=== PATIENT | male | born 1970 | race Caucasian/White ===

== ENCOUNTER 2024-04-25 07:15 | Emergency (ER) | payer BC ==
[~2024-04-25] VITALS: Ht 188 cm; Wt 79.4 kg
[2024-04-25 08:07] LABS: BASOPHILS % (AUTO) 0.3 % (0.0-2.0); MEAN CORPUSCULAR HEMOGLOBIN 32.3 uug (23.8-33.4)
[2024-04-25] MEDS ORDERED: ONDANSETRON 4 MG/2 ML VIAL ONE ×3 (08:09→14:57)
[2024-04-25] MEDS ORDERED: HYDROMORPHONE 2 MG/1 ML DISP.SYRIN ONE ×5 (08:10→16:19)
[2024-04-25] MEDS: ONDANSETRON 4 MG/2 ML VIAL IV ONE ×3 (08:14→15:01)
[2024-04-25] MEDS: IV NORMAL SALINE 1000 ML BAG IV ONE (08:14)
[2024-04-25] MEDS: HYDROMORPHONE 1 MG/1 ML DISP.SYRIN IV ONE ×5 (08:15→16:22)
[2024-04-25 08:30] LABS: EOSINOPHILS % (AUTO) 0.5 % (0.0-7.0); HEMATOCRIT 43.9 % (36.7-47.1); HEMOGLOBIN 14.8 g/dL (12.5-16.3); LYMPHOCYTES # (AUTO) 0.8 K/uL (0.8-4.8); LYMPHOCYTES % (AUTO) 8.8 % (20.5-51.5); MEAN CORPUSCULAR HGB CONC 34 g/dL (32.5-36.3); MEAN CORPUSCULAR VOLUME 95.5 fL (73.0-96.2); MONOCYTES # (AUTO) 0.8 K/uL (0.1-1.30); MONOCYTES % (AUTO) 8.7 % (0.0-11.0); NEUTROPHILS # (AUTO) 7.3 K/uL (1.8-8.9); NEUTROPHILS % (AUTO) 81.7 % (38.5-71.5); PLATELET COUNT (AUTO) 185 K/uL (152-348); RED CELL DISTRIBUTION WIDTH 12.8 % (12.1-16.2)
[2024-04-25 08:31] LABS: DIFFERENTIAL COMMENT 1
[2024-04-25 08:38] LABS: CALCIUM 9.2 mg/dL (8.5-10.1); CREATININE 0.9 mg/dL (0.6-1.3); POTASSIUM 3.8 mmol/L (3.5-5.1)
[2024-04-25] MEDS ORDERED: FLEET ENEMA 133 ML BOTTLE RC ONE (08:41)
[2024-04-25 08:43] LABS: BILIRUBIN,DIRECT 0.2 mg/dL (0.0-0.2); BILIRUBIN,TOTAL 0.5 mg/dL (0.2-1.0); TOTAL PROTEIN, SERUM 7.2 g/dL (6.4-8.2)
[2024-04-25] MEDS: FLEET ENEMA 133 ML BOTTLE RC ONE (08:46)
[2024-04-25] MEDS ORDERED: MINERAL OIL FLEET ENEMA 133 ML BOTTLE RC ONE (11:36)
[2024-04-25] MEDS: MINERAL OIL FLEET ENEMA 133 ML BOTTLE RC ONE (11:39)
[2024-04-25] MEDS ORDERED: MAGNESIUM HYDROXIDE 30 ML LIQUID UDC ONE ×2 (16:13→16:19)
[2024-04-25] MEDS: MAGNESIUM HYDROXIDE 30 ML LIQUID UDC PO ONE (16:19)
[2024-04-25 16:29] VITALS: BP 121/81; TEMP 98.5; O2SAT 99
== END 2024-04-25 16:31 | disposition home or self-care (01) ==
LOC: ER 07:15
DX: K50.90 Crohn's disease, unspecified, without complications (principal); K56.41 Fecal impaction; D72.810 Lymphocytopenia; M85.80 Other specified disorders of bone density and structure, unspecified site; Z98.1 Arthrodesis status; Z90.49 Acquired absence of other specified parts of digestive tract
CPT/HCPCS: 99284; 96374; 96361; 96375; 80076; 80048; 82607; 83735; 85025; 36415; 74021; 96376; J2405 ×3; J1171 ×5; J7040 ×2; A4606; A4663

== ENCOUNTER 2024-04-29 06:25 | Emergency (ER) | payer SELFPAY ==
[~2024-04-29] VITALS: Ht 188 cm; Wt 77.1 kg
[2024-04-29 07:30] LABS: BASOPHILS % (AUTO) 0.5 % (0.0-2.0); EOSINOPHILS # (AUTO) 0.1 K/uL (0.0-0.7); EOSINOPHILS % (AUTO) 0.8 % (0.0-7.0); HEMATOCRIT 43.4 % (36.7-47.1); HEMOGLOBIN 14.6 g/dL (12.5-16.3); LYMPHOCYTES # (AUTO) 0.8 K/uL (0.8-4.8); LYMPHOCYTES % (AUTO) 12.1 % (20.5-51.5); MEAN CORPUSCULAR HEMOGLOBIN 32.3 uug (23.8-33.4); MEAN CORPUSCULAR HGB CONC 34 g/dL (32.5-36.3); MEAN CORPUSCULAR VOLUME 96.4 fL (73.0-96.2); MONOCYTES # (AUTO) 0.7 K/uL (0.1-1.30); MONOCYTES % (AUTO) 9.7 % (0.0-11.0); NEUTROPHILS # (AUTO) 5.2 K/uL (1.8-8.9); NEUTROPHILS % (AUTO) 76.9 % (38.5-71.5); PLATELET COUNT (AUTO) 193 K/uL (152-348); RED CELL DISTRIBUTION WIDTH 13.1 % (12.1-16.2); WHITE BLOOD COUNT (AUTO) 6.8 K/uL (3.6-10.2)
[2024-04-29] MEDS ORDERED: ONDANSETRON 4 MG/2 ML VIAL ONE ×2 (07:31→10:15)
[2024-04-29] MEDS ORDERED: HYDROMORPHONE 2 MG/1 ML DISP.SYRIN ONE ×2 (07:32→10:16)
[2024-04-29 07:44] LABS: *BILIRUBIN,URIN NEGATIVE (NEGATIVE); *BLOOD, URINE NEGATIVE (NEGATIVE); *CLARITY,URINE CLEAR (CLEAR); *COLOR,URINE YELLOW (YELLOW); *KETONES,URINE NEGATIVE (NEGATIVE); *PROTEIN,URINE NEGATIVE (NEGATIVE); *UROBILINOGEN,URINE 0.2 E.U./dl (NORMAL); LEUKOCYTE ESTERASE ,URINE NEGATIVE (NEGATIVE); NITRITE, URINE NEGATIVE (NEGATIVE); UGLUCOSE NEGATIVE (NEGATIVE)
[2024-04-29 07:50] LABS: ALANINE AMINOTRANSFERASE 27 U/L (16-63); ALBUMIN 3.7 g/dL (3.4-5.0); ALKALINE PHOSPHATASE 90 U/L (50-136); ASPARTATE AMINOTRANSFERASE 6 U/L (15-37); BILIRUBIN,DIRECT 0.2 mg/dL (0.0-0.2); BILIRUBIN,TOTAL 0.5 mg/dL (0.2-1.0); CALCIUM 9.4 mg/dL (8.5-10.1); CARBON DIOXIDE 30 mmol/L (21-32); CHLORIDE 104 mmol/L (98-107); CREATININE 1.2 mg/dL (0.6-1.3); GLUCOSE 121 mg/dL (74-106); LIPASE 19 U/L (16-77); POTASSIUM 3.8 mmol/L (3.5-5.1); SODIUM SERUM 141 mmol/L (136-145); TOTAL PROTEIN, SERUM 7.3 g/dL (6.4-8.2); UREA NITROGEN, BLOOD 16 mg/dL (7-18)
[2024-04-29 07:52] LABS: DIFFERENTIAL COMMENT 1
[2024-04-29] MEDS: ONDANSETRON 4 MG/2 ML VIAL IV ONE ×2 (07:53→10:17)
[2024-04-29] MEDS: IV NORMAL SALINE 1000 ML BAG IV ONE (07:53)
[2024-04-29] MEDS: HYDROMORPHONE 1 MG/1 ML DISP.SYRIN IV ONE ×2 (07:54→10:26)
[2024-04-29 11:05] VITALS: BP 157/99; O2SAT 99
== END 2024-04-29 11:05 | disposition home or self-care (01) ==
LOC: ER 06:37
DX: K50.90 Crohn's disease, unspecified, without complications (principal)
CPT/HCPCS: 99285; 96374; 71045; 96361; 96375; 80076; 80048; 81003; 83690; 85025; 85730; 84484; 36415; 93005; 96376; J2405 ×2; J1171 ×2; J7040 ×2; A4606; A4663

== ENCOUNTER 2024-05-07 07:23 | Emergency (ER) | payer MEDICAID ==
[~2024-05-07] VITALS: Ht 188 cm; Wt 77.1 kg
[2024-05-07] MEDS ORDERED: ONDANSETRON 4 MG/2 ML VIAL ONE ×2 (07:45→08:38)
[2024-05-07] MEDS ORDERED: HYDROMORPHONE 1 MG/1 ML DISP.SYRIN ONE ×2 (07:46→08:38)
[2024-05-07] MEDS: IV NORMAL SALINE 1000 ML BAG IV ONE (07:48)
[2024-05-07] MEDS: HYDROMORPHONE 1 MG/1 ML DISP.SYRIN IV ONE ×2 (07:48→08:41)
[2024-05-07] MEDS: ONDANSETRON 4 MG/2 ML VIAL IV ONE (07:48)
[2024-05-07 09:03] LABS: BASOPHILS % (AUTO) 0.4 % (0.0-2.0); EOSINOPHILS % (AUTO) 0.2 % (0.0-7.0); HEMATOCRIT 41.8 % (36.7-47.1); HEMOGLOBIN 14.1 g/dL (12.5-16.3); LYMPHOCYTES # (AUTO) 0.9 K/uL (0.8-4.8); LYMPHOCYTES % (AUTO) 11.5 % (20.5-51.5); MEAN CORPUSCULAR HEMOGLOBIN 32.8 uug (23.8-33.4); MEAN CORPUSCULAR HGB CONC 34 g/dL (32.5-36.3); MEAN CORPUSCULAR VOLUME 97.2 fL (73.0-96.2); MONOCYTES # (AUTO) 0.6 K/uL (0.1-1.30); MONOCYTES % (AUTO) 8.1 % (0.0-11.0); NEUTROPHILS # (AUTO) 6.2 K/uL (1.8-8.9); NEUTROPHILS % (AUTO) 79.8 % (38.5-71.5); PLATELET COUNT (AUTO) 156 K/uL (152-348); RED CELL DISTRIBUTION WIDTH 13.2 % (12.1-16.2); WHITE BLOOD COUNT (AUTO) 7.7 K/uL (3.6-10.2)
[2024-05-07 09:19] LABS: CALCIUM 8.7 mg/dL (8.5-10.1); POTASSIUM 3.8 mmol/L (3.5-5.1)
[2024-05-07 09:22] LABS: DIFFERENTIAL COMMENT 1
[2024-05-07 09:26] LABS: ALBUMIN 3.5 g/dL (3.4-5.0); BILIRUBIN,DIRECT 0.1 mg/dL (0.0-0.2); BILIRUBIN,TOTAL 0.5 mg/dL (0.2-1.0); TOTAL PROTEIN, SERUM 6.7 g/dL (6.4-8.2)
[2024-05-07 09:44] VITALS: BP 133/71; TEMP 98; O2SAT 98
== END 2024-05-07 09:45 | disposition home or self-care (01) ==
LOC: ER 07:23
DX: K50.90 Crohn's disease, unspecified, without complications (principal); Z60.2 Problems related to living alone; Z88.8 Allergy status to other drugs, medicaments and biological substances
CPT/HCPCS: 99284; 96374; 96361; 96375; 80076; 80048; 83690; 85025; 36415; 96376; J2405; J1171 ×2; J7040; A4606; A4663

== ENCOUNTER 2024-05-13 07:29 | Emergency (ER) | payer MEDICAID ==
[~2024-05-13] VITALS: Ht 188 cm; Wt 77.1 kg
[2024-05-13] MEDS ORDERED: HYDROMORPHONE 2 MG/1 ML DISP.SYRIN ONE ×4 (08:08→10:37)
[2024-05-13] MEDS ORDERED: ONDANSETRON 4 MG/2 ML VIAL ONE ×2 (08:09→10:03)
[2024-05-13] MEDS: ONDANSETRON 4 MG/2 ML VIAL IV ONE ×2 (08:10→10:05)
[2024-05-13] MEDS: HYDROMORPHONE 1 MG/1 ML DISP.SYRIN IV ONE ×4 (08:10→10:36)
[2024-05-13 08:24] LABS: BASOPHILS # (AUTO) 0.2 K/UL (0.0-0.2); BASOPHILS % (AUTO) 1.7 % (0.0-2.0); EOSINOPHILS % (AUTO) 0.4 % (0.0-7.0); HEMATOCRIT 45.2 % (36.7-47.1); HEMOGLOBIN 15.4 g/dL (12.5-16.3); LYMPHOCYTES # (AUTO) 0.5 K/uL (0.8-4.8); LYMPHOCYTES % (AUTO) 4.4 % (20.5-51.5); MEAN CORPUSCULAR HEMOGLOBIN 33.1 uug (23.8-33.4); MEAN CORPUSCULAR HGB CONC 34 g/dL (32.5-36.3); MEAN CORPUSCULAR VOLUME 96.8 fL (73.0-96.2); MONOCYTES # (AUTO) 0.7 K/uL (0.1-1.30); MONOCYTES % (AUTO) 6.3 % (0.0-11.0); NEUTROPHILS # (AUTO) 9.4 K/uL (1.8-8.9); NEUTROPHILS % (AUTO) 87.2 % (38.5-71.5); PLATELET COUNT (AUTO) 188 K/uL (152-348); RED BLOOD CELL COUNT(AUTO) 4.66 MIL/uL (4.06-5.63); RED CELL DISTRIBUTION WIDTH 12.8 % (12.1-16.2); WHITE BLOOD COUNT (AUTO) 10.7 K/uL (3.6-10.2)
[2024-05-13 08:28] LABS: DIFFERENTIAL COMMENT 1
[2024-05-13 08:29] LABS: CALCIUM 8.8 mg/dL (8.5-10.1); CREATININE 1.3 mg/dL (0.6-1.3)
[2024-05-13] MEDS: IV NS 1000 ML 1,000 ML IV ONE (08:32)
[2024-05-13] MEDS ORDERED: CYANOCOBALAMIN 1000 MCG/ML VIAL ONE (08:46)
[2024-05-13] MEDS: CYANOCOBALAMIN 1000 MCG/ML VIAL IM ONE (08:47)
[2024-05-13] MEDS ORDERED: ONDA4TAB5 PO (10:19)
[2024-05-13] MEDS ORDERED: HYDR4TAB4 PO (10:19)
[2024-05-13] MEDS ORDERED: [UNRECOGNIZED DRUG - CODE] PO (10:31)
[2024-05-13 10:57] VITALS: O2SAT 99
== END 2024-05-13 10:58 | disposition home or self-care (01) ==
LOC: ER 07:29
DX: K50.90 Crohn's disease, unspecified, without complications (principal); D72.810 Lymphocytopenia; M85.80 Other specified disorders of bone density and structure, unspecified site; Z90.49 Acquired absence of other specified parts of digestive tract; Z79.899 Other long term (current) drug therapy
CPT/HCPCS: 99285; 96374; 96375; 80048; 82607; 85025; 36415; 96376; 96372; J3420; J2405 ×2; J1171 ×4; J7040 ×2; A4606; A4663

== ENCOUNTER 2024-05-15 09:51 | Emergency (ER) | payer MEDICAID ==
[~2024-05-15] VITALS: Ht 188 cm; Wt 77.1 kg
[~2024-05-15 09:51] MED LIST: HYDR4TAB4 PO; ONDA4TAB5 PO; [UNRECOGNIZED DRUG - CODE] PO
[2024-05-15] MEDS ORDERED: HYDROMORPHONE 1 MG/1 ML DISP.SYRIN ONE (10:46)
[2024-05-15] MEDS ORDERED: HYDROMORPHONE 2 MG/1 ML DISP.SYRIN ONE ×5 (10:46→16:58)
[2024-05-15] MEDS ORDERED: ONDANSETRON 4 MG/2 ML VIAL ONE ×3 (10:46→16:58)
[2024-05-15] MEDS: ONDANSETRON 4 MG/2 ML VIAL IV ONE ×3 (10:47→16:54)
[2024-05-15] MEDS: HYDROMORPHONE 1 MG/1 ML DISP.SYRIN IV ONE ×5 (10:47→17:02)
[2024-05-15] MEDS: IV NORMAL SALINE 1000 ML BAG IV ONE (10:51)
[2024-05-15 10:52] LABS: BASOPHILS # (AUTO) 0.2 K/UL (0.0-0.2); BASOPHILS % (AUTO) 1.5 % (0.0-2.0); EOSINOPHILS % (AUTO) 0.3 % (0.0-7.0); HEMATOCRIT 46.9 % (36.7-47.1); HEMOGLOBIN 15.9 g/dL (12.5-16.3); LYMPHOCYTES # (AUTO) 0.9 K/uL (0.8-4.8); LYMPHOCYTES % (AUTO) 8.5 % (20.5-51.5); MEAN CORPUSCULAR HEMOGLOBIN 32.7 uug (23.8-33.4); MEAN CORPUSCULAR HGB CONC 34 g/dL (32.5-36.3); MONOCYTES # (AUTO) 0.6 K/uL (0.1-1.30); MONOCYTES % (AUTO) 6.1 % (0.0-11.0); NEUTROPHILS # (AUTO) 8.9 K/uL (1.8-8.9); NEUTROPHILS % (AUTO) 83.6 % (38.5-71.5); PLATELET COUNT (AUTO) 194 K/uL (152-348); RED BLOOD CELL COUNT(AUTO) 4.88 MIL/uL (4.06-5.63); RED CELL DISTRIBUTION WIDTH 13.1 % (12.1-16.2); WHITE BLOOD COUNT (AUTO) 10.6 K/uL (3.6-10.2)
[2024-05-15 11:03] LABS: CALCIUM 9.5 mg/dL (8.5-10.1); CREATININE 1.1 mg/dL (0.6-1.3); POTASSIUM 3.7 mmol/L (3.5-5.1)
[2024-05-15 11:10] LABS: BILIRUBIN,DIRECT 0.1 mg/dL (0.0-0.2); BILIRUBIN,TOTAL 0.4 mg/dL (0.2-1.0); TOTAL PROTEIN, SERUM 7.7 g/dL (6.4-8.2)
[2024-05-15] MEDS: IV NS 1000 ML 1,000 ML IV ONE (12:58)
[2024-05-15] MEDS ORDERED: METH4TAB3 PO (16:57)
[2024-05-15] MEDS ORDERED: LORA0.5T48 PO (17:07)
[2024-05-15 17:16] VITALS: O2SAT 99
== END 2024-05-15 17:18 | disposition home or self-care (01) ==
LOC: ER 09:51
DX: K50.90 Crohn's disease, unspecified, without complications (principal); M85.80 Other specified disorders of bone density and structure, unspecified site; D72.810 Lymphocytopenia; Z79.899 Other long term (current) drug therapy
CPT/HCPCS: 99285; 96374; 96361; 96375; 80076; 80048; 85025; 36415; 96376; J2405 ×3; J1171 ×6; J7040 ×2; A4606; A4663

== ENCOUNTER 2024-05-16 08:09 | Emergency (ER) | payer MEDICAID ==
[~2024-05-16] VITALS: Ht 188 cm; Wt 77.1 kg
[~2024-05-16 08:09] MED LIST changes: +LORA0.5T48 PO; +METH4TAB3 PO
[2024-05-16] MEDS ORDERED: ONDANSETRON 4 MG/2 ML VIAL ONE ×3 (09:06→11:11)
[2024-05-16] MEDS: ONDANSETRON 4 MG/2 ML VIAL IV ONE ×3 (09:08→11:08)
[2024-05-16] MEDS: IV NORMAL SALINE 1000 ML BAG IV ONE (09:08)
[2024-05-16 09:24] LABS: BASOPHILS # (AUTO) 0.1 K/UL (0.0-0.2); BASOPHILS % (AUTO) 1.1 % (0.0-2.0); EOSINOPHILS % (AUTO) 0.3 % (0.0-7.0); LYMPHOCYTES # (AUTO) 0.6 K/uL (0.8-4.8); LYMPHOCYTES % (AUTO) 6.8 % (20.5-51.5); MEAN CORPUSCULAR HEMOGLOBIN 32.8 uug (23.8-33.4); MEAN CORPUSCULAR HGB CONC 34 g/dL (32.5-36.3); MEAN CORPUSCULAR VOLUME 96.1 fL (73.0-96.2); MONOCYTES # (AUTO) 0.6 K/uL (0.1-1.30); MONOCYTES % (AUTO) 6.3 % (0.0-11.0); NEUTROPHILS # (AUTO) 7.8 K/uL (1.8-8.9); NEUTROPHILS % (AUTO) 85.5 % (38.5-71.5); PLATELET COUNT (AUTO) 225 K/uL (152-348); RED BLOOD CELL COUNT(AUTO) 4.89 MIL/uL (4.06-5.63); RED CELL DISTRIBUTION WIDTH 13.1 % (12.1-16.2); WHITE BLOOD COUNT (AUTO) 9.1 K/uL (3.6-10.2)
[2024-05-16] MEDS ORDERED: HYDROMORPHONE HCL 2 MG TABLET ONE (09:57)
[2024-05-16 10:04] LABS: CALCIUM 9.8 mg/dL (8.5-10.1); CREATININE 1.1 mg/dL (0.6-1.3); POTASSIUM 4.3 mmol/L (3.5-5.1)
[2024-05-16] MEDS: HYDROMORPHONE HCL 2 MG TABLET PO ONE (10:05)
[2024-05-16 10:07] LABS: ALBUMIN 4.1 g/dL (3.4-5.0); BILIRUBIN,DIRECT 0.1 mg/dL (0.0-0.2); BILIRUBIN,TOTAL 0.6 mg/dL (0.2-1.0)
[2024-05-16 11:30] VITALS: BP 131/91; O2SAT 100
== END 2024-05-16 11:35 | disposition home or self-care (01) ==
LOC: ER 08:09
DX: R11.2 Nausea with vomiting, unspecified (principal); G89.4 Chronic pain syndrome; Z79.899 Other long term (current) drug therapy
CPT/HCPCS: 99284; 96374; 96361; 80076; 80048; 83690; 85025; 36415; 96376; J2405 ×3; J7040; A4606; A4663

== ENCOUNTER 2024-05-18 09:44 | Emergency (ER) | payer MEDICAID | END 2024-05-18 10:10 | disposition left against medical advice (07) | LOC: ER 09:48 | DX: R11.2 Nausea with vomiting, unspecified (principal); G89.4 Chronic pain syndrome; K50.10 Crohn's disease of large intestine without complications; Z79.899 Other long term (current) drug therapy; Z91.048 Other nonmedicinal substance allergy status ==

== ENCOUNTER 2024-05-20 07:09 | Emergency (ER) | payer MEDICAID | END 2024-05-20 08:25 | disposition left against medical advice (07) | LOC: ER 07:09 | DX: G89.29 Other chronic pain (principal); Z79.899 Other long term (current) drug therapy; Z88.8 Allergy status to other drugs, medicaments and biological substances ==

== ENCOUNTER 2024-05-21 07:22 | Emergency (ER) | payer MEDICAID | END 2024-05-21 07:38 | disposition left against medical advice (07) | LOC: ER 07:22 | DX: G89.29 Other chronic pain (principal); R10.9 Unspecified abdominal pain; F11.20 Opioid dependence, uncomplicated ==